=== PATIENT | female | born 1990 | race Caucasian/White ===

== ENCOUNTER 2021-09-17 19:10 | Emergency (ER) | payer MEDICAID ==
[~2021-09-17] VITALS: Ht 160 cm; Wt 59.0 kg
[2021-09-17 19:14] VITALS: BP 123/75
--- NOTE | 2021-09-17 19:29 | NUR ---
FLU & COVID AUGUSTO SWABS DONE.
--- NOTE | 2021-09-17 20:48 | NUR ---
Dr. Chacko examining patient.
[2021-09-17] MEDS ORDERED: BENZ-300 PO (20:55)
[2021-09-17] MEDS ORDERED: BPM/118S31 PO (20:55)
[2021-09-17 20:59] VITALS: BP 123/75
--- NOTE | 2021-09-17 20:59 | NUR ---
Patient discharged with v/s stable. Written and verbal after care instructions given and explained. Patient alert, oriented and verbalized understanding of instructions. Ambulatory with to car. All questions addressed prior to discharge. ID band removed. Patient advised to follow up with PMD. Rx of CEPACOL SORETHROAT LOZENGE, BROMFED DM given. Patient educated on indication of medication including possible reaction and side effects. Opportunity to ask questions provided and answered.
== END 2021-09-17 20:59 | disposition home or self-care (01) ==
LOC: MED 19:10
DX: B34.9 Viral infection, unspecified (principal); Z20.822 Contact with and (suspected) exposure to COVID-19; Z76.0 Encounter for issue of repeat prescription
CPT/HCPCS: 99283

== ENCOUNTER 2021-10-01 15:21 | Emergency (ER) | payer MEDICAID ==
[~2021-10-01] VITALS: Ht 157.5 cm; Wt 60.3 kg
[~2021-10-01 15:21] MED LIST: BENZ-300 PO; BPM/118S31 PO
[2021-10-01 15:27] VITALS: BP 115/67
[2021-10-01] MEDS ORDERED: FLUC150T PO (16:45)
[2021-10-01] MEDS ORDERED: DOXY-690 PO (16:45)
[2021-10-01] MEDS ORDERED: cefTRIAXone 500 MG in LIDOCAINE MPF 1% 1 ML IM ONE (16:50)
[2021-10-01] MEDS ORDERED: cefTRIAXone 500 MG VIAL ONE (16:56)
[2021-10-01] MEDS ORDERED: LIDOCAINE MPF 1% 5 ML ONE (16:56)
[2021-10-01 17:16] VITALS: BP 112/62
--- NOTE | 2021-10-01 17:16 | NUR ---
Patient discharged with v/s stable. Written and verbal after care instructions given FOR GONORRHEA TEST, CHLAMYDIA TEST, AND VAGINITIS and explained. Patient alert, oriented and verbalized understanding of instructions. Ambulatory with steady gait. All questions addressed prior to discharge. ID band removed. Patient advised to follow up with PMD. Rx of VIBRAMYCIN AND DIFLUCAN given. Patient educated on indication of medication including possible reaction and side effects. Opportunity to ask questions provided and answered.
[2021-10-02] MEDS ORDERED: CEPH250C16 PO (13:43)
== END 2021-10-01 17:15 | disposition home or self-care (01) ==
LOC: MED 15:21
DX: N39.0 Urinary tract infection, site not specified (principal); B37.3 Candidiasis of vulva and vagina; Z11.3 Encounter for screening for infections with a predominantly sexual mode of transmission; Z79.899 Other long term (current) drug therapy
CPT/HCPCS: 81002; 81025; 87491; 96372; 99283; J0696; J2001

== ENCOUNTER 2021-10-02 11:23 | Emergency (ER) | payer MEDICAID ==
[~2021-10-02] VITALS: Ht 160 cm; Wt 60.3 kg
[~2021-10-02 11:23] MED LIST changes: +DOXY-690 PO; +FLUC150T PO
[2021-10-02 11:34] VITALS: BP 125/97
--- NOTE | 2021-10-02 11:37 | NUR ---
PT SENT TO LOBBY TO WAIT
[2021-10-02] MEDS ORDERED: ONDANSETRON 4 MG ODT PO ONE (11:50)
--- NOTE | 2021-10-02 12:36 | NUR ---
31/F PRESENTS TO ED WITH C/O NAUSEA AND VOMITING SINCE THIS MORNING. PATIENT STATES SHE WAS SEEN HERE AND GIVEN RX OF ABX FOR POSSIBLE STD. STATES AFTER TAKING HER FIRST DOSE HAS BEEN VOMITING SINCE. DENIES FEVERS, CHILLS, DIARRHEA, CONSTIPATION.
[2021-10-02] MEDS ORDERED: CEPH250C16 PO (13:43)
[2021-10-02 14:07] VITALS: BP 128/87
--- NOTE | 2021-10-02 14:07 | NUR ---
Patient discharged with v/s stable. Written and verbal after care instructions ABOUT DYSURIA given and explained. Patient alert, oriented and verbalized understanding of instructions. Ambulatory with steady gait. All questions addressed prior to discharge. ID band removed. Patient advised to follow up with PMD. Rx of CEPHALEXIN given. Patient educated on indication of medication including possible reaction and side effects. Opportunity to ask questions provided and answered.
== END 2021-10-02 14:07 | disposition home or self-care (01) ==
LOC: MED 11:23
DX: R30.0 Dysuria (principal); R11.2 Nausea with vomiting, unspecified
CPT/HCPCS: 81002; 81025; 99283; Q0162

== ENCOUNTER 2021-11-20 21:03 | Emergency (ER) | payer MEDICAID ==
[~2021-11-20] VITALS: Ht 160 cm; Wt 59.5 kg
[~2021-11-20 21:03] MED LIST changes: +CEPH250C16 PO
[2021-11-20 21:22] VITALS: BP 134/88
--- NOTE | 2021-11-20 21:25 | NUR ---
PT TO LOBBY
--- NOTE | 2021-11-20 22:01 | NUR ---
Dr. Perez examining patient.
--- NOTE | 2021-11-20 22:18 | NUR ---
PT TAKEN TO RADIOLOGY
--- NOTE | 2021-11-20 22:31 | NUR ---
PT RETURN FROM RADIOLOGY TO ER LOBBY
[2021-11-20] MEDS ORDERED: FLONAS NS (22:46)
[2021-11-20] MEDS ORDERED: ATA25 PO (22:46)
[2021-11-20 22:53] VITALS: BP 134/88
--- NOTE | 2021-11-20 22:53 | NUR ---
Patient discharged with v/s stable. Written and verbal after care instructions given and explained. Patient alert, oriented and verbalized understanding of instructions. Ambulatory with steady gait. All questions addressed prior to discharge. ID band removed. Patient advised to follow up with PMD. Rx of ATARAX AND FLONASE given. Patient educated on indication of medication including possible reaction and side effects. Opportunity to ask questions provided and answered.
== END 2021-11-20 22:53 | disposition home or self-care (01) ==
LOC: MED 21:03
DX: J30.9 Allergic rhinitis, unspecified (principal); F41.9 Anxiety disorder, unspecified; Z98.890 Other specified postprocedural states
CPT/HCPCS: 71045; 99283